=== PATIENT | female | born 1995 | race African-American/Black ===

== ENCOUNTER 2020-08-29 22:14 | Emergency (ER) | payer OTHER ==
[~2020-08-29] VITALS: Ht 177.8 cm; Wt 113.4 kg
[2020-08-29 22:47] LABS: URINE BILIRUBIN NEGATIVE (Negative); URINE BLOOD NEGATIVE (Negative); URINE CLARITY CLEAR; URINE GLUCOSE-RANDOM* 3+ (Negative); URINE KETONES 1+ (Negative); URINE LEUKOCYTES-REFLEX NEGATIVE (Negative); URINE NITRITE-REFLEX NEGATIVE (Negative); URINE PROTEIN (DIPSTICK) NEGATIVE (Negative); URINE UROBILINOGEN 0.2 E.U./dl (0.2-1.0)
[2020-08-29 22:48] LABS: ABSOLUTE NEUTROPHILS 4.5 thou/uL (1.4-8.2); BASOPHILS 1.4 % (0.0-2.0); EOSINOPHILS 3.5 % (0.0-3.0); HEMATOCRIT 44.1 % (37.0-47.0); HEMOGLOBIN 14.9 gm/dL (12.0-15.0); LYMPHOCYTES 34.9 % (24.0-44.0); MCH 27.9 pg (26.0-34.0); MCHC 33.8 g/dL (28.0-37.0); MCV 82.3 fL (80.0-100.0); MONOCYTES 7.5 % (1.0-8.0); PLATELET COUNT 418 thou/uL (150-400); POLYS 52.7 % (36.0-66.0); RBC 5.35 mil/uL (4.20-5.00); RDW 13.3 % (10.5-14.5); WBC 8.6 thou/uL (4.0-11.0)
[2020-08-29] MEDS ORDERED: NEXPLANON68 MG SUBQ (22:49)
[2020-08-29 22:50] LABS: URINE COLOR YELLOW
[2020-08-29 22:53] LABS: CALCIUM 9.1 mg/dL (8.5-10.1)
[2020-08-29 22:56] LABS: POTASSIUM 3.9 mmol/L (3.5-5.1)
[2020-08-29 22:59] LABS: ALBUMIN 3.8 g/dL (3.4-5.0); TOTAL BILIRUBIN 0.4 mg/dL (0.2-1.0); TOTAL PROTEIN 7.9 g/dL (6.4-8.2)
[2020-08-29] MEDS ORDERED: METFORMIN HCL500 M3 PO (23:35)
[2020-08-30] MEDS ORDERED: ZOFRAN ODT4 MG PO (00:26)
[2020-08-30 00:37] VITALS: BP 147/105
== END 2020-08-30 00:37 | disposition home or self-care (01) ==
LOC: ER 22:14
PROVIDERS: Emergency Medicine
DX: R10.84 Generalized abdominal pain (principal); R73.9 Hyperglycemia, unspecified; R11.2 Nausea with vomiting, unspecified; Z91.040 Latex allergy status